=== PATIENT | female | born 1990 | race Caucasian/White ===

== ENCOUNTER 2016-12-12 21:42 | Inpatient (IN) ==
[2016-12-12] MEDS: LACTATED RINGERS 1,000 ML IV SCH (22:15)
[2016-12-12] MEDS ORDERED: BUTORPHANOL 2 MG/ML VIAL IV PRN (22:33)
[2016-12-12] MEDS ORDERED: ONDANSETRON 4 MG/2 ML VIAL IV PRN (22:33)
[2016-12-12 23:14] LABS: Basophils % 0.1 % (0.0-0.8); Eosinophils % 0.5 % (0.00-10.9); Hematocrit 29.4 VOL% (35.7-47.0); Hemoglobin 10.6 GM/DL (12.0-16.0); Immature Granulocytes % 0.6 %; Immature Granulocytes Absolute 0.05 #; Lymphocytes # 2.4 10*3/uL (1.4-4.0); Lymphocytes % 27.3 % (21.3-54.2); Mean Corpuscular HGB Conc 36.1 GM/DL (32-36); Mean Corpuscular Hemoglobin 32 PG (27-34); Mean Platelet Volume 11.6 FL (9.6-12.0); Monocytes # 0.7 10*3/uL (0.11-0.8); Monocytes % 8.1 % (1.7-12.7); Neutrophils # 5.6 10*3/uL (1.4-7.4); Neutrophils % 63.4 % (38.7-73.9); Platelet Count 166 T/CUMM (130-400); Red Blood Count 3.34 MC/CUMM (3.8-5.5); White Blood Count 8.8 T/CUMM (4-12)
[2016-12-12 23:20] LABS: Albumin 2.5 G/DL (3.4-5.0); Bilirubin,Total 0.5 MG/DL (0.2-1.0); Calcium 8.1 MG/DL (8.5-10.1); Osmolality,Calculated 274.7 MOS/KG (273-304); Potassium 3.7 MMOL/L (3.5-5.1); Total Protein 5.4 G/DL (6.4-8.3)
[2016-12-13] MEDS: LACTATED RINGERS 1,000 ML IV SCH (04:11)
[2016-12-13] MEDS ORDERED: OXYTOCIN/LR 20 UNIT/1,000 ML BAG IV SCH (06:00)
[2016-12-13] MEDS ORDERED: diphenhydrAMINE 50 MG/1 ML VIAL IV PRN (07:08)
[2016-12-13] MEDS ORDERED: ePHEDrine 50 MG/ML AMP IV PRN (07:08)
[2016-12-13] MEDS ORDERED: FAMOTIDINE 20 MG/2 ML VIAL IV ONE (07:08)
[2016-12-13] MEDS ORDERED: CITRIC ACID/SODIUM CITRATE 30 ML UDCUP PO ONE (07:08)
[2016-12-13] MEDS ORDERED: hydrOXYzine HCL 25 MG/1 ML VIAL IM PRN (07:08)
[2016-12-13] MEDS ORDERED: fentaNYL 2 MCG/ROPIV 0.2% EPID 150 ML EPIDURAL SCH (07:08)
[2016-12-13] MEDS ORDERED: PROMETHAZINE 25 MG/1 ML VIAL IM PRN (07:08)
[2016-12-13] MEDS ORDERED: fentaNYL 2 MCG/ROPIV 0.2% EPID 150 ML EPIDURAL ONE (07:14)
--- NOTE | 2016-12-13 07:56 | OB/GYN History & Physical ---
History of Present Illness Chief complaint: 39 weeks elective induction History of present illness: Ms. Laws is a 26 year old female 2 para 1 at 39 weeks estimated gestational age admitted for elective induction ultrasound estimated weight is 7 pounds with adequate clinical pelvimetry. She has 1 previous successful delivery. Presentation is confirmed vertex. He is constantly admitted for Cytotec/Pitocin induction. Patient is currently received epidural anesthesia was noted to be 4 cm dilated on 8 milliunits of pit and had artificial rupture membranes is noted be clear [id number]. Pitocin will be continued with expected vaginal delivery Home Medications Medication Instructions Recorded Confirmed Type Metoclopramide Tab [Reglan Tab] 10 mg PO Q8H #10 tablet 05/02/16 12/12/16 Rx Nitrofurantoin Macro/Deaf Smith 100 mg PO BID #20 capsule 05/02/16 12/12/16 Rx [Macrobid] Ondansetron Odt Tab [Zofran Odt] 4 mg PO Q4H #10 tablet 05/02/16 12/12/16 Rx Allergies Allergy/AdvReac Type Severity Reaction Status Date / Time Penicillins AdvReac Mild HIVES Verified 05/02/16 20:21 12 point system: reviewed and no additional remarkable complaints except as stated Medical,Surgical,& Family Hx - Medical History Reproductive: No history of: Ectopic , Complication - Surgical History Thoracic Surgeries: Patient denies;: Organ Transplant Reproductive Surgeries: Patient denies;: Section - Family History Family History: Reports;: Family Cancer (BROTHER LEUKEMIA), Family Diabetes (MGF ) Denies;: Family Anesthesia Reaction, Family Heart Disease, Family Hematology , Family Hypertension, Family Psychiatric Problems, Family Stroke, Additional Family History - Social History Smoking Status: Never smoker Frequency of Alcohol Use: None Type of Drug Use: None 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 - Constitutional Vitals: Vital Signs Temp 12/13/16 04:00 97.1 F L 12/13/16 00:00 97.1 F L General appearance: no acute distress - Head Head exam: Present: normal inspection, normocephalic, atraumatic - Neck Neck exam: Present: normal inspection - Respiratory Respiratory exam: Present: clear to auscultation bilaterally - Breast Breasts: as per HPI Menstruation: as per HPI - Cardiovascular Cardiovascular exam: Present: regular rate and rhythm - GI/Abdominal GI/Abdominal exam: Present: normal bowel sounds - Extremities Exam Extremities exam: Present: normal inspection, normal capillary refill - Back Exam Back exam: Present: normal inspection - Neurological Exam Neurological exam: Present: alert, oriented X3 - Psychiatric Psychiatric exam: Present: normal affect, normal mood - Skin Skin exam: Present: normal color Assessment and Plan (1) with 39 completed weeks gestation Status: Acute Current Visit: Yes Results - Labs CBC & BMP: 12/12/16 22:54 12/12/16 22:54
--- NOTE | 2016-12-13 12:07 | OB/GYN Progress Note ---
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 Harkins dictating vaginal delivery And in LDR environment under sterile conditions, the patient progressed to completely dilated. She was allowed to push and under [epidural] anesthesia had a normal spontaneous vaginal delivery of a live born female unweighed Apgars pending over a intact perineum. The infant's nose and oropharynx were bulb and DeLee suctioned, and the infant had spontaneous cry after delivery. The cord was doubly clamped and cut and the infant was handed over to the pediatric team for care. Cord blood was obtained the placenta delivered spontaneously intact and IV Pitocin was done. There were no cervical tears. There were no periurethral tears. Estimated blood loss was 250 mL. There were no complications. The bladder was emptied using a catheter prior to delivery. All sponge needle and instrument counts were correct -3 at the end of the delivery. The infant was taken to nursery in stable condition Exam ANTENNA RIGGER - Constitutional Vitals: Vital Signs Temp 12/13/16 04:00 97.1 F L 12/13/16 00:00 97.1 F L Results - Labs CBC & BMP: 12/12/16 22:54 12/12/16 22:54
--- NOTE | 2016-12-13 12:09 | Discharge Summary ---
<Eduard Harkins - Last Filed: 12/13/16 12:07> Hospital Course - Hospital Course Hospital Course: the patient did well. She had quick return of bowel bladder function. She remained afebrile and normotensive throughout her hospitalization. She is constantly discharged tentatively on day #2 on a regular diet Diagnosis - Discharge Diagnosis (1) with 39 completed weeks gestation Status: Acute Specialty Discharge - Follow Up or Referrals Follow up with: Eduard Harkins MD [Physician] - 2 Weeks Discharge Plan - Discharge Data Disposition: Disch To Home/Self Care Condition at Discharge: Stable Discharge Diet: regular diet Activity: increase activity as tolerated, other (Pelvic rest) Hygiene: may shower Weight Bearing at Discharge: full weight bearing Driving: no restrictions Contact your physician if you experience:: fever over 101, Difficulty voiding, Redness or swelling, Nausea/Vomiting, Shortness of breath, Bleeding, pain uncontrolled by pain medications - Discharge Medications New HYDROcodone/ACETAMIN 5-325 [Payne 5-325] 1 tablet PO Q4H PRN #15 tablet PRN Reason: Abdominal Pain Discontinued Metoclopramide Tab [Reglan Tab] 10 mg PO Q8H #10 tablet Nitrofurantoin Macro/Grant [Macrobid] 100 mg PO BID #20 capsule Ondansetron Odt Tab [Zofran Odt] 4 mg PO Q4H #10 tablet - Follow Up or Referral Follow Up: Eduard Harkins MD [Physician] - 2 Weeks - Forms/Instructions Exam - Constitutional Vitals: Period Temp Pulse Resp BP Sys/Craft Pulse Ox Last 24 Hr 96.1 F-98.6 F 18-87 18-71 105-132/60-85 96-99 DS: Provider Date of admission: 12/12/16 21:42 Primary care physician: Liz Parker Attending physician on admission: Allen Sandhu Consults: 12/12/16 22:34 Consult to Anesthesiology [CONS] Routine Consulting Provider: Reason for Anesthesiology: Epidural Consult Comment: Epidural for pain managment 12/13/16 12:10 Consult to Superintendent Circus [CONS] Routine Consult Superintendent Circus: Breast Feeding Discharging clinician: Allen Sandhu Expected date of discharge: 12/15/16 <Flor Ayers - Last Filed: 12/15/16 09:52> Diagnosis - Discharge Diagnosis (1) Vaginal delivery Status: Acute Discharge Plan - Discharge Data Condition at Discharge: Stable Discharge Diet: regular diet Activity: increase activity as tolerated Hygiene: may shower Weight Bearing at Discharge: full weight bearing Driving: no restrictions Contact your physician if you experience:: fever over 101, Difficulty voiding, Shortness of breath, Bleeding, pain uncontrolled by pain medications
[2016-12-13] MEDS ORDERED: BISACODYL 10 MG SUPP RECTAL PRN (12:10)
[2016-12-13] MEDS ORDERED: MEASLES/MUMPS/RUBELLA VACCINE 0.5 ML VIAL SUBCUT ONE (12:10)
[2016-12-13] MEDS ORDERED: HYDROCORTISONE 2.5% RECTAL CREAM 30 GM TUBE TOP PRN (12:10)
[2016-12-13] MEDS ORDERED: WITCH HAZEL PADS 100/JAR TOP PRN (12:10)
[2016-12-13] MEDS ORDERED: RHO(D) IMMUNE GLOBULIN 300 MCG SYRINGE IM ONE (12:10)
[2016-12-13] MEDS ORDERED: LANOLIN 50% CREAM 0.3 OZ TUBE TOP PRN (12:10)
[2016-12-13] MEDS ORDERED: BENZOCAINE 20%/MENTHOL 0.5% SPRAY 56 GM CAN TOP PRN (12:10)
[2016-12-13] MEDS ORDERED: ONDANSETRON 4 MG/2 ML VIAL IV PRN (12:10)
[2016-12-13] MEDS ORDERED: DIPH/TET/ACEL PERT BOOSTER VACCINE 0.5 ML VIAL IM ONE (12:10)
[2016-12-13] MEDS ORDERED: ACETAMINOPHEN 325 MG TABLET PO PRN (12:10)
[2016-12-13] MEDS ORDERED: OXYTOCIN/LR 20 UNIT/1,000 ML BAG IV ONE (12:10)
[2016-12-13] MEDS ORDERED: FUROSEMIDE 40 MG/4 ML VIAL IV PRN (12:58)
--- NOTE | 2016-12-13 13:29 | Anesthesia Post-Op ---
Anesthesia Post OP - Post Ansesthetic Evaluation Patient seen in post op: Yes Resp: within normal limits CV: within normal limits Mental: within normal limits Temp: within normal limits [id number]: within normal limits Nausea and Vomiting: within normal limits Pain: within normal limits
[2016-12-13] MEDS: IBUPROFEN 800 MG TABLET PO PRN (17:01)
[2016-12-13] MEDS: oxyCODONE/ACETAMINOPHEN 5-325 MG TABLET PO PRN ×2 (18:10→20:55)
[2016-12-13] MEDS: DOCUSATE SODIUM 100 MG CAPSULE PO SCH (20:27)
[2016-12-14] MEDS: IBUPROFEN 800 MG TABLET PO PRN ×3 (03:16→18:35)
[2016-12-14] MEDS: oxyCODONE/ACETAMINOPHEN 5-325 MG TABLET PO PRN ×3 (03:16→19:50)
[2016-12-14 04:10] LABS: Apearance,Urine CLEAR (Clear); Bilirubin,Urine Negative (Negative); Blood, Urine Moderate mg/dL (Negative); Glucose,Urine (UA) Negative (Negative); Ketones,Urine Negative (Negative); Nitrite,Urine Negative (Negative); Protein,Urine Negative; RBC,Urine <1 /HPF (0-4); Squamous Epithelial Cell,Urine Occasional /HPF (0-10); Urine Color Colorless (Yellow); Urine Specific Gravity 1.003 (1.001-1.035); Urine Urobilinogen < 2.0 EU/DL (0.2-1.0); WBC,Urine 3 /HPF (0-6)
[2016-12-14 07:10] LABS: Basophils % 0.2 % (0.0-0.8); Eosinophils # 0.1 10*3/uL (0.0-0.87); Eosinophils % 0.8 % (0.00-10.9); Hematocrit 32.1 VOL% (35.7-47.0); Hemoglobin 11.3 GM/DL (12.0-16.0); Immature Granulocytes % 0.7 %; Immature Granulocytes Absolute 0.06 #; Lymphocytes # 2.2 10*3/uL (1.4-4.0); Lymphocytes % 25.1 % (21.3-54.2); Mean Corpuscular HGB Conc 35.2 GM/DL (32-36); Mean Corpuscular Hemoglobin 32 PG (27-34); Mean Corpuscular Volume 89.7 FL (87-102); Mean Platelet Volume 11.5 FL (9.6-12.0); Monocytes # 0.7 10*3/uL (0.11-0.8); Monocytes % 7.3 % (1.7-12.7); NRBC # 0.02 10*3/uL; Neutrophils # 5.9 10*3/uL (1.4-7.4); Neutrophils % 65.9 % (38.7-73.9); Platelet Count 137 T/CUMM (130-400); Red Blood Count 3.58 MC/CUMM (3.8-5.5); Red Cell Distribution Width 13.2 % (9.3-17.3); White Blood Count 8.9 T/CUMM (4-12)
[2016-12-14] MEDS: DOCUSATE SODIUM 100 MG CAPSULE PO SCH ×2 (09:17→20:00)
--- NOTE | 2016-12-14 12:25 | OB/GYN Progress Note ---
Assessment and Plan (1) Vaginal delivery Status: Acute Assessment and plan: PPD # 1 . The patient and the baby are doing well. Continue routine care. 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 She has no complaints. Her pain and bleeding are under control. The patient did fall yesterday and hit her hip in labor and delivery. But the patient says she is doing well and has no issues from that fall. 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 - Constitutional Vitals: Vital Signs Temp Pulse Resp BP BP Pulse Ox 12/14/16 12:00 98.3 F 87 18 121/78 97 12/14/16 08:00 97.0 F L 74 16 124/67 98 12/14/16 05:00 18 12/14/16 04:16 97.8 F 77 20 117/68 98 12/14/16 01:00 18 12/14/16 00:20 97.8 F 79 18 103/51 99 12/13/16 19:45 97.1 F L 69 18 128/78 97 12/13/16 18:00 98.0 F 71 20 124/77 98 12/13/16 16:00 18 General appearance: normal weight, no acute distress - Respiratory Respiratory exam: Absent: accessory muscle use - Cardiovascular Cardiovascular exam: Present: regular rate and rhythm - GI/Abdominal GI/Abdominal exam: Absent: guarding, tenderness, rebound - Extremities Exam Extremities exam: Absent: calf tenderness - Neurological Exam Neurological exam: Present: alert, oriented X3 Results - Labs CBC & BMP: 12/14/16 07:03 12/12/16 22:54
[2016-12-15] MEDS: IBUPROFEN 800 MG TABLET PO PRN ×2 (00:21→07:51)
[2016-12-15] MEDS: DOCUSATE SODIUM 100 MG CAPSULE PO SCH (08:41)
--- NOTE | 2016-12-15 09:52 | OB/GYN Progress Note ---
Assessment and Plan (1) Vaginal delivery Status: Acute Assessment and plan: PPD # 2 . The patient and the baby are doing well. Continue routine care and follow up. Precautions given. 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 She has no complaints this morning. 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 - Constitutional Vitals: Vital Signs Temp Pulse Resp BP Pulse Ox 12/15/16 04:00 96.1 F L 18 L 18 114/60 99 12/15/16 02:00 18 12/15/16 00:00 97.4 F L 62 18 124/62 96 12/14/16 20:00 97.7 F 72 18 132/85 99 12/14/16 18:24 18 12/14/16 17:45 20 12/14/16 17:00 20 12/14/16 15:20 98.6 F 71 18 105/70 99 12/14/16 15:00 18 12/14/16 12:00 98.3 F 87 18 121/78 97 General appearance: normal weight, no acute distress - Respiratory Respiratory exam: Absent: accessory muscle use - Cardiovascular Cardiovascular exam: Present: regular rate and rhythm - GI/Abdominal GI/Abdominal exam: Absent: guarding, tenderness, rebound - Extremities Exam Extremities exam: Absent: calf tenderness - Neurological Exam Neurological exam: Present: alert, oriented X3 - Psychiatric Psychiatric exam: Present: normal affect, normal mood - Skin Skin exam: Present: normal color Results - Labs CBC & BMP: 12/14/16 07:03 12/12/16 22:54
[2016-12-15 10:32] VITALS: BP 122/76
== END 2016-12-15 12:00 | disposition home or self-care (01) | DRG 775 ==
LOC: N.LD 21:42 → N.OB 12-13 17:57
PROVIDERS: ADMIT Specialist; ATTEND Specialist

== ENCOUNTER 2021-02-16 08:34 | Inpatient (IN) ==
[2021-02-16] MEDS ORDERED: MEPERIDINE 50 MG/1 ML VIAL IV PRN (09:12)
[2021-02-16] MEDS ORDERED: BUTORPHANOL 1 MG/ML VIAL IV PRN (09:12)
[2021-02-16] MEDS ORDERED: BUTORPHANOL 2 MG/ML VIAL IV PRN (09:12)
[2021-02-16] MEDS ORDERED: OXYTOCIN/LR 20 UNIT/1,000 ML BAG IV PRN (09:12)
[2021-02-16] MEDS ORDERED: ONDANSETRON 4 MG/2 ML VIAL IV PRN (09:12)
[2021-02-16 09:38] LABS: Basophils % 0.3 % (0.0-0.8); Eosinophils # 0.1 10*3/uL (0.0-0.87); Hematocrit 31.2 VOL% (35.7-47.0); Hemoglobin 10.3 GM/DL (12.0-16.0); Immature Granulocytes % 0.5 %; Immature Granulocytes Absolute 0.03 #; Lymphocytes # 1.5 10*3/uL (1.4-4.0); Mean Corpuscular Volume 89.7 FL (87-102); Monocytes % 8.2 % (1.7-12.7); Platelet Count 159 T/CUMM (130-400); Red Blood Count 3.48 MC/CUMM (3.8-5.5); Red Cell Distribution Width 13.2 % (9.3-17.3); White Blood Count 6.6 T/CUMM (4-12)
[2021-02-16] MEDS: LACTATED RINGERS 1,000 ML IV SCH ×2 (10:02→12:50)
[2021-02-16] MEDS ORDERED: FAMOTIDINE 20 MG/2 ML VIAL IV ONE (11:11)
[2021-02-16] MEDS ORDERED: NALOXONE 0.4 MG/ML VIAL IV PRN (11:11)
[2021-02-16] MEDS ORDERED: ePHEDrine 50 MG/ML VIAL IV PRN (11:11)
[2021-02-16] MEDS ORDERED: diphenhydrAMINE 50 MG/1 ML VIAL IV PRN (11:11)
[2021-02-16] MEDS ORDERED: CITRIC ACID/SODIUM CITRATE 30 ML UDCUP PO ONE (11:11)
[2021-02-16] MEDS ORDERED: PROMETHAZINE 25 MG/1 ML VIAL IM PRN (11:11)
[2021-02-16] MEDS ORDERED: hydrOXYzine HCL 25 MG/1 ML VIAL IM PRN (11:11)
[2021-02-16] MEDS ORDERED: fentaNYL 2 MCG/ROPIV 0.2% EPID 100 ML EPIDURAL SCH (11:30)
[2021-02-16 14:23] LABS: Bilirubin,Urine Negative (Negative); Blood, Urine Negative (Negative); Glucose,Urine (UA) Negative (Negative); Ketones,Urine 5 mg/dL (Negative); Mucus,Urine Occasional /LPF (Occasional); Nitrite,Urine Positive (Negative); Protein,Urine Negative; RBC,Urine 2 /HPF (0-4); Squamous Epithelial Cell,Urine Occasional /HPF (0-10); Urine Appearance CLEAR (Clear); Urine Color Straw (Yellow); Urine Specific Gravity 1.011 (1.001-1.035); Urine Urobilinogen < 2.0 EU/DL (0.2-1.0)
[2021-02-16] MEDS ORDERED: TRANEXAMIC ACID 1,000 MG/10 ML VIAL ONE (19:19)
[2021-02-16] MEDS ORDERED: miSOPROStoL 200 MCG TABLET ONE (19:19)
[2021-02-16] MEDS ORDERED: METHYLERGONOVINE 0.2 MG/1 ML AMP ONE (19:20)
[2021-02-16] MEDS ORDERED: CARBOPROST TROMETHAMINE 250 MCG/ML AMP IM ONE (19:20)
[2021-02-16] MEDS ORDERED: SODIUM CHLORIDE 0.9% 0 ML IV ONE (19:21)
[2021-02-16 20:39] LABS: Cord Arterial Blood HCO3 17.7 MMOL/L
[2021-02-16 20:42] LABS: Cord Venous Blood HCO3 20.8 MMOL/L; Cord Venous Blood PCO2 41.9 MMHG; Cord Venous Blood PO2 25.9
[2021-02-17] MEDS ORDERED: RHO(D) IMMUNE GLOBULIN 300 MCG SYRINGE IM ONE (00:20)
[2021-02-17] MEDS ORDERED: WITCH HAZEL PADS 100/JAR TOP PRN (00:20)
[2021-02-17] MEDS ORDERED: MEASLES/MUMPS/RUBELLA VACCINE 0.5 ML VIAL SUBCUT ONE (00:20)
[2021-02-17] MEDS ORDERED: oxyCODONE/ACETAMINOPHEN 5-325 MG TABLET PO PRN ×2 (00:20)
[2021-02-17] MEDS ORDERED: ONDANSETRON 4 MG/2 ML VIAL IV PRN (00:20)
[2021-02-17] MEDS ORDERED: OXYTOCIN/LR 20 UNIT/1,000 ML BAG IV ONE (00:20)
[2021-02-17] MEDS ORDERED: DIPH/TET/ACEL PERT BOOSTER VACCINE 0.5 ML VIAL IM ONE (00:20)
[2021-02-17] MEDS ORDERED: BISACODYL 10 MG SUPP RECTAL PRN (00:20)
[2021-02-17] MEDS ORDERED: LANOLIN 50% CREAM 0.3 OZ TUBE TOP PRN (00:20)
[2021-02-17] MEDS ORDERED: BENZOCAINE 20%/MENTHOL 0.5% SPRAY 56 GM CAN TOP PRN (00:20)
[2021-02-17] MEDS ORDERED: ACETAMINOPHEN 325 MG TABLET PO PRN (00:20)
[2021-02-17] MEDS ORDERED: HYDROCORTISONE 2.5% RECTAL CREAM 30 GM TUBE TOP PRN (00:20)
[2021-02-17] MEDS: IBUPROFEN 800 MG TABLET PO PRN ×4 (00:37→20:06)
[2021-02-17] MEDS: DOCUSATE SODIUM 100 MG CAPSULE PO SCH ×3 (01:01→20:04)
[2021-02-17 07:26] LABS: Basophils % 0.3 % (0.0-0.8); Eosinophils # 0.1 10*3/uL (0.0-0.87); Eosinophils % 1.2 % (0.00-10.9); Hematocrit 33.8 VOL% (35.7-47.0); Hemoglobin 11.5 GM/DL (12.0-16.0); Immature Granulocytes % 0.4 %; Immature Granulocytes Absolute 0.05 #; Lymphocytes # 1.7 10*3/uL (1.4-4.0); Lymphocytes % 15.3 % (21.3-54.2); Mean Corpuscular Volume 88.3 FL (87-102); Mean Platelet Volume 11.8 FL (9.6-12.0); Monocytes % 8.4 % (1.7-12.7); Neutrophils % 74.4 % (38.7-73.9); Platelet Count 168 T/CUMM (130-400); Red Blood Count 3.83 MC/CUMM (3.8-5.5); White Blood Count 11.2 T/CUMM (4-12)
[2021-02-18] MEDS ORDERED: SIMETHICONE CHEW 125 MG TABLET PO PRN (03:29)
[2021-02-18] MEDS: IBUPROFEN 800 MG TABLET PO PRN (03:40)
[2021-02-18 08:40] VITALS: BP 134/86
[2021-02-18] MEDS: DOCUSATE SODIUM 100 MG CAPSULE PO SCH (10:12)
== END 2021-02-18 12:30 | disposition home or self-care (01) | DRG 807 ==
LOC: N.LDOUT 08:34 → N.LD 08:36 → N.OB 23:32
PROVIDERS: ADMIT Specialist; ATTEND Specialist